=== PATIENT | male | born 1950 | race Caucasian/White ===

== ENCOUNTER → 2016-11-26 | Outpatient (CLI) | payer BC, MEDICARE ==
[~2016-11-26] MED LIST: Bupivacaine 0.25% 10 ML SDV INJECT STA; Iopamidol 612 MG/ML 50 ML SDV IARTIC STA; Triamcinolone Acetonide 40 MG/ML 1 ML MDV INJECT STA
--- NOTE | 2016-11-26 10:58 | CR ---
EXAMINATION: Fluoro guided right hip injection. HISTORY: Osteoarthritis FINDINGS: The procedure, risks, and benefits were discussed with the patient. Risks included pain, bleeding, a nd infection. Written informed consent was obtained. The overlying soft tissues were sterilely prepp ed. 1% lidocaine was administered for local anesthesia. Using fluoroscopic guidance a 22-gauge spina l needle was advanced to the right hip joint. Intra-articular location was confirmed with a small am ount of Isovue-300. A total of 80 mg of Kenalog and 3 mL of Marcaine were injected. The patient tole rated the procedure well. There are no immediate complications. IMPRESSION: Successful Fluoro guided right hip joint steroid injection.
== END | disposition home or self-care (01) ==
LOC: MW.DI 09:19
PROVIDERS: ATTEND Orthopaedic Surgery
DX: M16.11 Unilateral primary osteoarthritis, right hip (principal)
CPT/HCPCS: 20610; 77002; J3301

== ENCOUNTER 2021-05-20 10:24 | Observation (INO) | payer MEDICARE, OTHER ==
[2021-05-20] MEDS ORDERED: Sodium Chloride 0.9% 1,000 ML IV ONE (10:32)
--- NOTE | 2021-05-20 10:32 | EDM.PDOC ---
ED HPI GENERAL MEDICAL PROBLEM - General Chief Complaint: Abdominal Pain Stated Complaint: LOWER RIGHT QUADRANT HURTS 2X DAYS Time Seen by Provider: 05/20/21 10:25 Source of Information: Reports: Patient History Limitations: Reports: No Limitations - History of Present Illness INITIAL COMMENTS - FREE TEXT/NARRATIVE: HISTORY AND PHYSICAL: History of present illness: Patient is a 71-year-old male who presents to the emergency room with complaints of right upper quadrant pain and epigastric pain for the past 2 days. Patient states he had his gallbladder removed 50+ years ago but the "pain feels similar". Describes the pain as sharp and nonradiating. Pain is exacerbated upon standing when he gets up from his recliner as well as with any twisting movements. Pain is not associated with food. Patient denies any fever, chills, headache, change in vision, syncope or near syncope. Denies any chest pain, back pain, shortness of breath or cough. Denies any nausea, vomiting, diarrhea, constipation or dysuria. Has not noted any blood in urine or stool. Last BM was yesterday, describes as normal. Denies any testicular pain, redness, swelling or difficulty initiating voiding. Patient has been eating and drinking appropriately. Patient denies any injury or trauma. He is on Eliquis daily for A.Fib. No concern for COVID - 19, has had the [email or web address] vaccination. Review of systems: As per history of present illness and below otherwise all systems reviewed and negative. Past medical history: As per history of present illness and as reviewed below otherwise noncontribut ory. Surgical history: As per history of present illness and as reviewed below otherwise noncontributory. Social history: See social history for further information Family history: As per history of present illness and as reviewed below otherwise noncontributory. Physical exam: General: Well developed and well nourished 71 year old male. Alert and orientated x 3. Nontoxic in appearance and in no acute distress. Vital signs are stable and have been reviewed by me. Nursing notes were reviewed. HEENT: Atraumatic, normocephalic, pupils equal and reactive bilaterally, negative for conjunctival pallor or scleral icterus, mucous membranes moist, TMs normal bilaterally, throat clear, neck supple, nontender, trachea midline. No drooling or trismus noted. No meningeal signs. No hot potato voice noted. Lungs: Clear to auscultation bilaterally. No wheezes, rales, or rhonchi. Chest nontender. Normal work of breathing, no accessory muscles used. Heart: S1S2, regular rate and rhythm without overt murmur, gallops, or rubs. No JVD. No peripheral edema Abdomen: The right midabdomen feels firm to touch. He is obese. He has tenderness elicited upon palpation in the right upper quadrant as well as the epigastric area. Normoactive bowel sounds. Negative for masses or costovertebral tenderness. Pelvis: Stable nontender. Genitourinary/Rectal: This was done with consent and foam rubber mixer at bedside. No testicular pain with palpation. No redness or swelling. Skin: Intact, warm, dry. No lesions or rashes noted. Hematologic: No petechiae or purpra. Mucosa appropriate color and normal nail bed color and refill. Extremities: Atraumatic, moves all extremities per self without difficulty or deficits, negative for cords or calf pain. Neurovascular unremarkable. Neuro: Awake, alert, oriented. Cranial nerves II through XII unremarkable. Cerebellum unremarkable. Motor and sensory unremarkable throughout. Exam nonfocal. Psychiatric: Mood and affect are appropriate. Normal thought process. Answering questions appropriately. Notes: *This patient was seen and evaluated during the 2019 SARS-CoV-2 novel coronavirus pandemic period. Community viral transmission is ongoing at time of this encounter and the emergency department is operating under pandemic response procedures. Patient is a 71 year old male who has right upper quadrant pain as well as epigastric pain. He denies any n/v/d associated with this. No changes in urine or bowel habits. No recent injury, trauma or falls. Skin is free of rash/lesions. He is obese with palpable firmness to RUQ associated with tenderness to palpation. Denies any history of hernia etc.. I will assess patient with some imaging more specifically CT of the abdomen, IV access has been established, patient will receive intravenous fluids for hydration, as well as analgesic medication for pain (which he declines at this time). Ultra sound shows a large hypoechoic avascular collection in the right lower quadrant likely corresponds with the rectus sheath hematoma seen on same day CT. 4.9 cm simple cyst in the lower pole of right kidney. Exam otherwise unremarkable. There is a large hyperdense right lower rectus sheath hematoma measuring approxi mately 11 x 15 x 10 cm in size. There appears to be active extravasation from the inferior epigastric vessels within the hematoma. Small amount of strandy density in the pelvis subjacent to the hematoma. Few small noncalcified pulmonary nodules in the lung bases measuring up to 5 mm. 1315: Dr. Wick, general surgeon on-call, was consulted on this case. He would prefer this patient to be transferred to a facility with interventional radiology. 1325: Dr Varela, IR at [facility] in [place], was consulted on this patient. He was able to review the CT images that were pushed. We reviewed the patient's case. He would like the patient to have a CT angiogram of the abdomen and pelvis to assess for venous versus arterial bleeding. This would facilitate if the patient needs transfer versus admission for monitoring. Patient was made aware of this and he is agreeable. 1400: Dr Wick, general surgeon, was here seeing another patient and looked at patient's CT images. He is agreeable that this patient likely does not have active bleeding, especially since the injury possibly occurred 3 days ago. I did tell him the conversation I had with the interventional radiologist and he is agreeable. He states if there is no active bleeding that we could likely keep him here and have surgery consulted if needed. Otherwise he would be managed by medicine to make sure he is stable to be home and discuss the Eliquis. We have had problems getting a large bore IV for the an CT angio of abd/pelvis. Anesthesia, nursing supervisory historian nurses have attempted to establish an IV. Dr. Tellez did do an ultrasound-guided IV. Once CT brings the patient down the IVs below. Patient continues to be stable. Vital signs are stable. States his pain is dull and declines wanting anything for pain at this time. 1800: CT angiogram of the abdomen and pelvis shows suboptimal opacification of the arteries due to limited IV access. Within this limitation, no evidence for active bleeding. The size of the right inferior rectus muscle hematoma is stable. Pulmonary nodules in the right lung. Recommend follow-up per Fleischner society guidelines, as listed below. Left adrenal gland nodule. Status post bilateral hip arthroplasty. Small fat containing umbilical hernia. I did talk with Dr. Wick, hospitalist on-call about this patient. I informed him of the discussions I've had with the interventional radiologist at [facility] and our general surgeon. He is agreeable to keeping this patient for further care and management. I have talked with the patient about today's findings, in addition to providing specific details for plan of care. Reassessment at the time of disposition demonstrates that the patient is in no acute distress. Patient continues to be in mild pain but stating he does not need anything for discomfort at this time. He is vitally stable. is at bedside. Diagnostics: CBC, CMP, Lipase, UA, CT abdomen Therapeutics: NS @ 125mls/hr Impression: Rectus muscle hematoma Definitive disposition and diagnosis as appropriate pending reevaluation and review of above. Right Abdomen Pain Score (Numeric/FACES): 4 - Related Data Allergies Allergy/AdvReac Type Severity Reaction Status Date / Time Sulfa (Sulfonamide Allergy Cannot Verified 05/20/21 10:57 Antibiotics) Remember Home Meds: Home Meds Apixaban [Eliquis] 5 mg PO DAILY 05/20/21 [History] Propranolol [Inderal LA] 120 mg PO DAILY 05/20/21 [History] amLODIPine [Norvasc] 5 mg PO DAILY 05/20/21 [History] Past Medical History Cardiovascular History: Reports: Hypertension Respiratory History: Reports: None Gastrointestinal History: Reports: None Genitourinary History: Reports: None Musculoskeletal History: Reports: Gout, None Neurological History: Reports: None Psychiatric History: Reports: None Endocrine/Metabolic History: Reports: None Hematologic History: Reports: None Immunologic History: Reports: None Oncologic (Cancer) History: Reports: None Dermatologic History: Reports: None - Past Surgical History Musculoskeletal Surgical History: Reports: Other (See Below) ED ROS GENERAL - Review of Systems Review Of Systems: Comprehensive ROS is negative, except as noted in HPI. ED EXAM, GI/ABD - Physical Exam Exam: See Below (See dictation) Course - Vital Signs Last Recorded V/S: Last Vital Signs Temp 97.3 F 05/20/21 10:25 Pulse 83 05/20/21 18:12 Resp 16 05/20/21 18:12 BP 147/93 H 05/20/21 18:12 Pulse Ox 97 05/20/21 18:12 - Orders/Labs/Meds Orders: Active Orders 24 hr Category Date Time Status Ang Abdomen [CT] Stat Exams 05/20/21 13:46 Ordered Labs: Laboratory Tests 05/20/21 05/20/21 05/20/21 Range/Units 10:50 10:50 10:50 WBC 11.14 H (4.0-11.0) K/uL RBC 4.88 (4.50-5.90) M/uL Hgb 14.6 (13.0-17.0) g/dL Hct 43.4 (38.0-50.0) % MCV 88.9 (80.0-98.0) fL MCH 29.9 (27.0-32.0) pg MCHC 33.6 (31.0-37.0) g/dL RDW Std Deviation 47.2 (28.0-62.0) fl RDW Coeff of Waqar 15 (11.0-15.0) % Plt Count 245 (150-400) K/uL MPV 10.00 (7.40-12.00) fL Neut % (Auto) 80.0 (48.0-80.0) % Lymph % (Auto) 10.6 L (16.0-40.0) % Dawson % (Auto) 8.4 (0.0-15.0) % Eos % (Auto) 0.8 (0.0-7.0) % Baso % (Auto) 0.2 (0.0-1.5) % Neut # (Auto) 8.9 H (1.4-5.7) K/uL Lymph # (Auto) 1.2 (0.6-2.4) K/uL Dawson # (Auto) 0.9 H (0.0-0.8) K/uL Eos # (Auto) 0.1 (0.0-0.7) K/uL Baso # (Auto) 0.0 (0.0-0.1) K/uL Nucleated RBC % 0.0 /100WBC Nucleated RBCs # 0 K/uL INR Sodium 136 (136-148) mmol/L Potassium 4.6 (3.5-5.1) mmol/L Chloride 99 (98-107) mmol/L Carbon Dioxide 29.5 (21.0-32.0) mmol/L BUN 18 (7.0-18.0) mg/dL Creatinine 0.9 (0.8-1.3) mg/dL Est Cr Clr Drug Dosing 76.60 mL/min Estimated GFR (MDRD) > 60.0 ml/min Glucose 123 H (74-106) mg/dL Calcium 9.4 (8.5-10.1) mg/dL Total Bilirubin 0.8 (0.2-1.0) mg/dL AST 21 (15-37) IU/L ALT 31 (14-63) IU/L Alkaline Phosphatase 90 (46-116) U/L Total Protein 8.4 H (6.4-8.2) g/dL Albumin 3.9 (3.4-5.0) g/dL Globulin 4.5 H (2.6-4.0) g/dL Albumin/Globulin Ratio 0.9 (0.9-1.6) Lipase 45 L (73-393) U/L Urine Color DARK YELLOW Urine Appearance CLEAR Urine pH 6.0 (5.0-8.0) Ur Specific [place] 1.025 (1.001-1.035) Urine Protein 30 H (NEGATIVE) mg/dL Urine Glucose (UA) NEGATIVE (NEGATIVE) mg/dL Urine Ketones NEGATIVE (NEGATIVE) mg/dL Urine Occult Blood NEGATIVE (NEGATIVE) Urine Nitrite NEGATIVE (NEGATIVE) Urine Bilirubin SMALL H (NEGATIVE) Urine Ictotest NEGATIVE Urine Urobilinogen 0.2 (<2.0) EU/dL Ur Leukocyte Esterase NEGATIVE (NEGATIVE) Urine RBC 0-2 (0-2/HPF) Urine WBC 1-2 (0-5/HPF) Ur Epithelial Cells FEW (NONE-FEW) Urine Bacteria FEW (NEGATIVE) Urinalysis Comment SARS-CoV-2 RNA (STEPHEN) (NEGATIVE) 05/20/21 05/20/21 Range/Units 10:50 14:14 WBC (4.0-11.0) K/uL RBC (4.50-5.90) M/uL Hgb (13.0-17.0) g/dL Hct (38.0-50.0) % MCV (80.0-98.0) fL MCH (27.0-32.0) pg MCHC (31.0-37.0) g/dL RDW Std Deviation (28.0-62.0) fl RDW Coeff of Waqar (11.0-15.0) % Plt Count (150-400) K/uL MPV (7.40-12.00) fL Neut % (Auto) (48.0-80.0) % Lymph % (Auto) (16.0-40.0) % Dawson % (Auto) (0.0-15.0) % Eos % (Auto) (0.0-7.0) % Baso % (Auto) (0.0-1.5) % Neut # (Auto) (1.4-5.7) K/uL Lymph # (Auto) (0.6-2.4) K/uL Dawson # (Auto) (0.0-0.8) K/uL Eos # (Auto) (0.0-0.7) K/uL Baso # (Auto) (0.0-0.1) K/uL Nucleated RBC % /100WBC Nucleated RBCs # K/uL INR 1.05 Sodium (136-148) mmol/L Potassium (3.5-5.1) mmol/L Chloride (98-107) mmol/L Carbon Dioxide (21.0-32.0) mmol/L BUN (7.0-18.0) mg/dL Creatinine (0.8-1.3) mg/dL Est Cr Clr Drug Dosing mL/min Estimated GFR (MDRD) ml/min Glucose (74-106) mg/dL Calcium (8.5-10.1) mg/dL Total Bilirubin (0.2-1.0) mg/dL AST (15-37) IU/L ALT (14-63) IU/L Alkaline Phosphatase (46-116) U/L Total Protein (6.4-8.2) g/dL Albumin (3.4-5.0) g/dL Globulin (2.6-4.0) g/dL Albumin/Globulin Ratio (0.9-1.6) Lipase (73-393) U/L Urine Color Urine Appearance Urine pH (5.0-8.0) Ur Specific [place] (1.001-1.035) Urine Protein (NEGATIVE) mg/dL Urine Glucose (UA) (NEGATIVE) mg/dL Urine Ketones (NEGATIVE) mg/dL Urine Occult Blood (NEGATIVE) Urine Nitrite (NEGATIVE) Urine Bilirubin (NEGATIVE) Urine Ictotest Urine Urobilinogen (<2.0) EU/dL Ur Leukocyte Esterase (NEGATIVE) Urine RBC (0-2/HPF) Urine WBC (0-5/HPF) Ur Epithelial Cells (NONE-FEW) Urine Bacteria (NEGATIVE) Urinalysis Comment SARS-CoV-2 RNA (STEPHEN) NEGATIVE (NEGATIVE) Meds: Medications Discontinued Medications Generic Name Dose Route Start Last Admin Trade Name Hector PRN Reason Stop Dose Admin Sodium Chloride 1,000 mls @ 125 mls/hr 05/20/21 10:32 05/20/21 10:53 Normal Saline IV 05/20/21 18:31 125 mls/hr STAT ONE Administration Iopamidol 200 ml 05/20/21 16:54 05/20/21 16:55 Iopamidol 755 Mg/Ml 500 Ml Multipack Bottle IVPUSH 05/20/21 16:55 200 ml ONETIME STA Administration Departure - Departure Time of Disposition: 19:29 Disposition: Refer to Observation Clinical Impression: Hematoma - Discharge Information Sepsis Event Note (ED) - Focused Exam Vital Signs: Vital Signs Temp Pulse Resp BP Pulse Ox 05/20/21 18:12 83 16 147/93 H 97 05/20/21 17:18 91 16 142/72 H 96 05/20/21 15:00 84 16 133/85 96 05/20/21 14:00 80 16 128/80 95 05/20/21 13:15 78 16 114/70 98 05/20/21 11:34 81 16 126/72 98 05/20/21 10:25 97.3 F 84 18 129/64 98 - My Orders Last 24 Hours: My Active Orders 05/20/21 13:46 Ang Abdomen [CT] Stat - Assessment/Plan Last 24 Hours: My Active Orders 05/20/21 13:46 Ang Abdomen [CT] Stat
[2021-05-20 11:36] LABS: BLOOD UREA NITROGEN,BUN 18 mg/dL (7.0-18.0); CARBON DIOXIDE,CO2 29.5 mmol/L (21.0-32.0); CHLORIDE,CL 99 mmol/L (98-107); GLUCOSE RANDOM 123 mg/dL (74-106); LIPASE 45 U/L (73-393); POTASSIUM,K 4.6 mmol/L (3.5-5.1); SODIUM,NA 136 mmol/L (136-148)
--- NOTE | 2021-05-20 12:43 | US ---
INDICATION: Right-sided abdominal pain, firm to touch. COMPARISON: Same day CT of the abdomen and pelvis 05/20/2021. TECHNIQUE: Real time win scale imaging and color Doppler analysis was performed of the right upper quadrant. FINDINGS: Liver: The liver is normal in size measuring 15.3 cm in length. Normal echogenicity. No focal liver lesions. Gallbladder: No stones or sludge. No wall thickening or pericholecystic fluid. Negative sonographic Merchant sign. Bile ducts: No biliary dilation. The common bile duct measures 2 mm in diameter. Pancreas: Normal where seen. Right kidney: The right kidney measures 10.4 cm in length. No hydronephrosis, calculus, or mass. There is a 4.9 cm anechoic cyst in the lower pole of the right kidney. Other: There is an irregular hypoechoic collection in the right lower quadrant measuring 9.1 x 7.6 cm. No internal vascularity. This likely corresponds with the rectus sheath hematoma seen on CT. IMPRESSION: 1. Large hypoechoic avascular collection in the right lower quadrant likely corresponds with the rectus sheath hematoma seen on same day CT. 2. 4.9 cm simple cyst in the lower pole of right kidney. 3. Exam otherwise unremarkable. Dictated by Naina Vega MD @ 05/20/2021 12:41:[address] Naina Vega @ May 20 2021 12:41PM
--- NOTE | 2021-05-20 13:10 | CT ---
INDICATION: Right-sided abdominal pain. TECHNIQUE: CT of the abdomen and pelvis with 100 cc Isovue 370 IV contrast. Coronal and sagittal reconstructions. COMPARISON: Same day abdominal ultrasound 05/20/2021. FINDINGS: Tiny low-attenuation lesion in the anterior liver is too small to characterize (series 201, image 36). The gallbladder, spleen, pancreas, and right adrenal gland are negative. Small nodule in the base of the left adrenal gland. No biliary dilation. Hepatic and portal veins are patent. Symmetric enhancement of the kidneys. 4.9 cm cyst arising from the lower pole of the right kidney. Tiny low-attenuation lesion in the midportion of the right kidney most likely represents a cyst. Early excretion of contrast in the caliceal tips bilaterally. No hydronephrosis or ureteral dilation. No obstructing urinary calculi identified, however the distal ureters are obscured by streak artifact from bilateral hip arthroplasties. Partially visualized bladder is under distended and thick walled. The prostate gland is not well seen. No bowel dilation. Colonic diverticulosis without evidence of diverticulitis. Appendectomy. Mild amount of strandy density in the pelvis subjacent to the rectus sheath hematoma. No intraperitoneal free air. Small to moderate sized fat containing umbilical hernia. Aortoiliac vascular calcifications. Nonspecific haziness of the left abdominal mesentery with mildly prominent mesenteric lymph nodes. Multiple prominent external iliac chain and inguinal lymph nodes may be reactive. No lymphadenopathy by size criteria. There is a large hyperdense right lower rectus sheath hematoma measuring approximately 11 x 15 x 10 cm in size (series 201, image 140 and series 204, image 85). There appears to be active extravasation from the inferior epigastric vessels within the hematoma (series 201, image 126). Degenerative changes of the spine. 4 mm noncalcified pulmonary nodule in the right middle lobe (series 202, image 13). 5 mm noncalcified pulmonary nodule in the central right lower lobe (image 26). 3 mm noncalcified pulmonary nodule in the posterior right lower lobe (image 33). The lung bases are otherwise clear. Coronary artery and mitral annulus calcifications. IMPRESSION: 1. Large hyperdense right lower rectus sheath hematoma with active extravasation from the inferior epigastric vessels measuring approximately 11 x 15 x 10 cm in size. Recommend IR/vascular consult. 2. Small amount of strandy density in the pelvis subjacent to the hematoma. 3. Few small noncalcified pulmonary nodules in the lung bases measuring up to 5 mm. Follow-up per Fleischner society guidelines. 4. Findings discussed with the Erlinda Brennan at 1:05 p.m. on 05/20/2021. Please note that all CT scans at this facility use dose modulation, iterative reconstruction, and/or weight-based dosing when appropriate to reduce radiation dose to as low as reasonably achievable. Dictated by Naina Vega MD @ 05/20/2021 1:08:[address] Naina Vega @ May 20 2021 1:08PM
--- NOTE | 2021-05-20 14:19 | PCM.SN.2 ---
- Free Text/Narrative Note: Anesthesia Start: 1350 Anesthesia Stop: [address] PIV (18g) in patient requiring CT angiogram. Using US Guidance a left arm 18g angiocath was placed. No apparent complications. Catheter secured with tegaderm and tape. Rodriguez Mcgraw MD
[2021-05-20] MEDS ORDERED: Iopamidol 755 MG/ML 500 ML Multipack Bottle IVPUSH STA (16:54)
--- NOTE | 2021-05-20 18:02 | CT ---
INDICATION: Rectus sheath hematoma TECHNIQUE: CT abdomen and pelvis acquired with 100 cc Isovue 370 IV contrast. COMPARISON: CT abdomen pelvis from earlier today FINDINGS: Lower chest: Two pulmonary nodules in the right middle and right lower lobe measuring less than 5 mm in diameter. Liver: Unremarkable. Spleen: Unremarkable. Pancreas: Fatty infiltration of the pancreas. Gallbladder and bile ducts: Unremarkable. Adrenal glands: 8 mm left adrenal gland nodule measuring 16 Hounsfield units in density, likely an adenoma. Kidneys: Cyst on the lower pole of the right kidney. GI tract: Colonic diverticulosis. Status post appendectomy. Vascular structures: Mild aortoiliac calcifications. Lymph nodes: Unremarkable. Miscellaneous: Right inferior rectus muscle hematoma measuring 13.5 x 10.4 x 6.6 cm, unchanged in size compared to the prior study. No active bleeding is identified although note that the arterial IV contrast bolus was limited as only a small gauge hand IV was available. There is small amount of fat stranding within the pelvis adjacent to the inferior aspect of the rectus sheath hematoma. Small fat containing umbilical hernia. Pelvic Organs: Unremarkable. Bones: Status post bilateral hip arthroplasty. IMPRESSION: IMPRESSION:Suboptimal opacification of the arteries due to limited IV access. Within this limitation, no evidence for active bleeding. The size of the right inferior rectus muscle hematoma is stable. Pulmonary nodules in the right lung. Recommend follow-up per Fleischner society guidelines, as listed below. Left adrenal gland nodule. Status post bilateral hip arthroplasty. Small fat containing umbilical hernia. Please note that all CT scans at this facility use dose modulation, iterative reconstruction, and/or weight-based dosing when appropriate to reduce radiation dose to as low as reasonably achievable. Dictated by Liss Almanzar MD @ 05/20/2021 6:01:[address] Liss Almanzar @ May 20 2021 6:01PM
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
[2021-05-21 06:57] LABS: BLOOD UREA NITROGEN,BUN 22 mg/dL (7.0-18.0); CARBON DIOXIDE,CO2 27.8 mmol/L (21.0-32.0); CHLORIDE,CL 100 mmol/L (98-107); GLUCOSE RANDOM 105 mg/dL (74-106); POTASSIUM,K 4.2 mmol/L (3.5-5.1); SODIUM,NA 137 mmol/L (136-148)
--- NOTE | 2021-05-21 08:10 | PCM.PN ---
- General Info Date of Service: 05/21/21 - Review of Systems Systems Review Comment:: abdominal pain improved - Patient Data Vitals - Most Recent: Last Vital Signs Temp 36.4 C 05/21/21 07:25 Pulse 86 05/21/21 07:25 Resp 20 05/21/21 07:25 BP 115/61 05/21/21 07:25 Pulse Ox 94 L 05/21/21 07:25 Weight - Most Recent: 142.791 kg I&O - Last 24 Hours: Intake & Output 05/20/21 05/21/21 05/21/21 22:59 06:59 14:59 Intake Total 650 Output Total 600 Balance 50 Lab Results Last 24 Hours: Laboratory Results - last 24 hr 05/20/21 05/20/21 05/20/21 Range/Units 10:50 10:50 10:50 WBC 11.14 H (4.0-11.0) K/uL RBC 4.88 (4.50-5.90) M/uL Hgb 14.6 (13.0-17.0) g/dL Hct 43.4 (38.0-50.0) % MCV 88.9 (80.0-98.0) fL MCH 29.9 (27.0-32.0) pg MCHC 33.6 (31.0-37.0) g/dL RDW Std Deviation 47.2 (28.0-62.0) fl RDW Coeff of Waqar 15 (11.0-15.0) % Plt Count 245 (150-400) K/uL MPV 10.00 (7.40-12.00) fL Neut % (Auto) 80.0 (48.0-80.0) % Lymph % (Auto) 10.6 L (16.0-40.0) % [place] % (Auto) 8.4 (0.0-15.0) % Eos % (Auto) 0.8 (0.0-7.0) % Baso % (Auto) 0.2 (0.0-1.5) % Neut # (Auto) 8.9 H (1.4-5.7) K/uL Lymph # (Auto) 1.2 (0.6-2.4) K/uL [place] # (Auto) 0.9 H (0.0-0.8) K/uL Eos # (Auto) 0.1 (0.0-0.7) K/uL Baso # (Auto) 0.0 (0.0-0.1) K/uL Nucleated RBC % 0.0 /100WBC Nucleated RBCs # 0 K/uL INR Sodium 136 (136-148) mmol/L Potassium 4.6 (3.5-5.1) mmol/L Chloride 99 (98-107) mmol/L Carbon Dioxide 29.5 (21.0-32.0) mmol/L BUN 18 (7.0-18.0) mg/dL Creatinine 0.9 (0.8-1.3) mg/dL Est Cr Clr Drug Dosing 76.60 mL/min Estimated GFR (MDRD) > 60.0 ml/min Glucose 123 H (74-106) mg/dL Calcium 9.4 (8.5-10.1) mg/dL Total Bilirubin 0.8 (0.2-1.0) mg/dL AST 21 (15-37) IU/L ALT 31 (14-63) IU/L Alkaline Phosphatase 90 (46-116) U/L Total Protein 8.4 H (6.4-8.2) g/dL Albumin 3.9 (3.4-5.0) g/dL Globulin 4.5 H (2.6-4.0) g/dL Albumin/Globulin Ratio 0.9 (0.9-1.6) Lipase 45 L (73-393) U/L Urine Color DARK YELLOW Urine Appearance CLEAR Urine pH 6.0 (5.0-8.0) Ur Specific [place] 1.025 (1.001-1.035) Urine Protein 30 H (NEGATIVE) mg/dL Urine Glucose (UA) NEGATIVE (NEGATIVE) mg/dL Urine Ketones NEGATIVE (NEGATIVE) mg/dL Urine Occult Blood NEGATIVE (NEGATIVE) Urine Nitrite NEGATIVE (NEGATIVE) Urine Bilirubin SMALL H (NEGATIVE) Urine Ictotest NEGATIVE Urine Urobilinogen 0.2 (<2.0) EU/dL Ur Leukocyte Esterase NEGATIVE (NEGATIVE) Urine RBC 0-2 (0-2/HPF) Urine WBC 1-2 (0-5/HPF) Ur Epithelial Cells FEW (NONE-FEW) Urine Bacteria FEW (NEGATIVE) Urinalysis Comment SARS-CoV-2 RNA (STEPHEN) (NEGATIVE) Blood Type Antibody Screen 05/20/21 05/20/21 05/20/21 Range/Units 10:50 14:14 23:40 WBC (4.0-11.0) K/uL RBC (4.50-5.90) M/uL Hgb (13.0-17.0) g/dL Hct (38.0-50.0) % MCV (80.0-98.0) fL MCH (27.0-32.0) pg MCHC (31.0-37.0) g/dL RDW Std Deviation (28.0-62.0) fl RDW Coeff of Waqar (11.0-15.0) % Plt Count (150-400) K/uL MPV (7.40-12.00) fL Neut % (Auto) (48.0-80.0) % Lymph % (Auto) (16.0-40.0) % [place] % (Auto) (0.0-15.0) % Eos % (Auto) (0.0-7.0) % Baso % (Auto) (0.0-1.5) % Neut # (Auto) (1.4-5.7) K/uL Lymph # (Auto) (0.6-2.4) K/uL [place] # (Auto) (0.0-0.8) K/uL Eos # (Auto) (0.0-0.7) K/uL Baso # (Auto) (0.0-0.1) K/uL Nucleated RBC % /100WBC Nucleated RBCs # K/uL INR 1.05 Sodium (136-148) mmol/L Potassium (3.5-5.1) mmol/L Chloride (98-107) mmol/L Carbon Dioxide (21.0-32.0) mmol/L BUN (7.0-18.0) mg/dL Creatinine (0.8-1.3) mg/dL Est Cr Clr Drug Dosing mL/min Estimated GFR (MDRD) ml/min Glucose (74-106) mg/dL Calcium (8.5-10.1) mg/dL Total Bilirubin (0.2-1.0) mg/dL AST (15-37) IU/L ALT (14-63) IU/L Alkaline Phosphatase (46-116) U/L Total Protein (6.4-8.2) g/dL Albumin (3.4-5.0) g/dL Globulin (2.6-4.0) g/dL Albumin/Globulin Ratio (0.9-1.6) Lipase (73-393) U/L Urine Color Urine Appearance Urine pH (5.0-8.0) Ur Specific [place] (1.001-1.035) Urine Protein (NEGATIVE) mg/dL Urine Glucose (UA) (NEGATIVE) mg/dL Urine Ketones (NEGATIVE) mg/dL Urine Occult Blood (NEGATIVE) Urine Nitrite (NEGATIVE) Urine Bilirubin (NEGATIVE) Urine Ictotest Urine Urobilinogen (<2.0) EU/dL Ur Leukocyte Esterase (NEGATIVE) Urine RBC (0-2/HPF) Urine WBC (0-5/HPF) Ur Epithelial Cells (NONE-FEW) Urine Bacteria (NEGATIVE) Urinalysis Comment SARS-CoV-2 RNA (STEPHEN) NEGATIVE (NEGATIVE) Blood Type A NEGATIVE Antibody Screen NEGATIVE 05/20/21 05/21/21 05/21/21 Range/Units 23:40 05:30 05:30 WBC 9.27 8.59 (4.0-11.0) K/uL RBC 4.28 L 4.30 L (4.50-5.90) M/uL Hgb 12.9 L 12.5 L (13.0-17.0) g/dL Hct 38.1 38.3 (38.0-50.0) % MCV 89.0 89.1 (80.0-98.0) fL MCH 30.1 29.1 (27.0-32.0) pg MCHC 33.9 32.6 (31.0-37.0) g/dL RDW Std Deviation 47.7 48.2 (28.0-62.0) fl RDW Coeff of Waqar 15 15 (11.0-15.0) % Plt Count 218 222 (150-400) K/uL MPV 9.90 10.70 (7.40-12.00) fL Neut % (Auto) 75.5 74.3 (48.0-80.0) % Lymph % (Auto) 14.2 L 13.4 L (16.0-40.0) % [place] % (Auto) 9.2 11.1 (0.0-15.0) % Eos % (Auto) 0.8 0.9 (0.0-7.0) % Baso % (Auto) 0.3 0.3 (0.0-1.5) % Neut # (Auto) 7.0 H 6.4 H (1.4-5.7) K/uL Lymph # (Auto) 1.3 1.2 (0.6-2.4) K/uL [place] # (Auto) 0.9 H 1.0 H (0.0-0.8) K/uL Eos # (Auto) 0.1 0.1 (0.0-0.7) K/uL Baso # (Auto) 0.0 0.0 (0.0-0.1) K/uL Nucleated RBC % 0.0 0.0 /100WBC Nucleated RBCs # 0 0 K/uL INR Sodium 137 (136-148) mmol/L Potassium 4.2 (3.5-5.1) mmol/L Chloride 100 (98-107) mmol/L Carbon Dioxide 27.8 (21.0-32.0) mmol/L BUN 22 H (7.0-18.0) mg/dL Creatinine 1.0 (0.8-1.3) mg/dL Est Cr Clr Drug Dosing 69.11 mL/min Estimated GFR (MDRD) > 60.0 ml/min Glucose 105 (74-106) mg/dL Calcium 8.4 L (8.5-10.1) mg/dL Total Bilirubin (0.2-1.0) mg/dL AST (15-37) IU/L ALT (14-63) IU/L Alkaline Phosphatase (46-116) U/L Total Protein (6.4-8.2) g/dL Albumin (3.4-5.0) g/dL Globulin (2.6-4.0) g/dL Albumin/Globulin Ratio (0.9-1.6) Lipase (73-393) U/L Urine Color Urine Appearance Urine pH (5.0-8.0) Ur Specific [place] (1.001-1.035) Urine Protein (NEGATIVE) mg/dL Urine Glucose (UA) (NEGATIVE) mg/dL Urine Ketones (NEGATIVE) mg/dL Urine Occult Blood (NEGATIVE) Urine Nitrite (NEGATIVE) Urine Bilirubin (NEGATIVE) Urine Ictotest Urine Urobilinogen (<2.0) EU/dL Ur Leukocyte Esterase (NEGATIVE) Urine RBC (0-2/HPF) Urine WBC (0-5/HPF) Ur Epithelial Cells (NONE-FEW) Urine Bacteria (NEGATIVE) Urinalysis Comment SARS-CoV-2 RNA (STEPHEN) (NEGATIVE) Blood Type Antibody Screen Med Orders - Current: Current Medications Acetaminophen (Acetaminophen 325 Mg Tab) 650 mg PO Q4H PRN PRN Reason: Pain (Mild 1-3)/fever Amlodipine Besylate (Amlodipine 5 Mg Tab) 5 mg PO DAILY GLENYS Propranolol HCl (Propranolol 60 Mg Cap.Er) 120 mg PO DAILY GLENYS Discontinued Medications Sodium Chloride (Normal Saline) 1,000 mls @ 125 mls/hr IV STAT ONE Stop: 05/20/21 18:31 Last Admin: 05/20/21 10:53 Dose: 125 mls/hr Documented by: Iopamidol (Iopamidol 755 Mg/Ml 500 Ml Multipack Bottle) 200 ml IVPUSH ONETIME STA Stop: 05/20/21 16:55 Last Admin: 05/20/21 16:55 Dose: 200 ml Documented by: - Exam General: Alert, Oriented Lungs: Clear to Auscultation, Normal Respiratory Effort Cardiovascular: Regular Rate, Regular Rhythm GI/Abdominal Exam: Normal Bowel Sounds, Soft, Non-Tender Extremities: Non-Tender, No Pedal Edema Skin: Warm, Dry, Intact Neurological: No New Focal Deficit - Patient Data Lab Results Last 24 hrs: Laboratory Results - last 24 hr 05/20/21 05/20/21 05/20/21 Range/Units 10:50 10:50 10:50 WBC 11.14 H (4.0-11.0) K/uL RBC 4.88 (4.50-5.90) M/uL Hgb 14.6 (13.0-17.0) g/dL Hct 43.4 (38.0-50.0) % MCV 88.9 (80.0-98.0) fL MCH 29.9 (27.0-32.0) pg MCHC 33.6 (31.0-37.0) g/dL RDW Std Deviation 47.2 (28.0-62.0) fl RDW Coeff of Waqar 15 (11.0-15.0) % Plt Count 245 (150-400) K/uL MPV 10.00 (7.40-12.00) fL Neut % (Auto) 80.0 (48.0-80.0) % Lymph % (Auto) 10.6 L (16.0-40.0) % [place] % (Auto) 8.4 (0.0-15.0) % Eos % (Auto) 0.8 (0.0-7.0) % Baso % (Auto) 0.2 (0.0-1.5) % Neut # (Auto) 8.9 H (1.4-5.7) K/uL Lymph # (Auto) 1.2 (0.6-2.4) K/uL [place] # (Auto) 0.9 H (0.0-0.8) K/uL Eos # (Auto) 0.1 (0.0-0.7) K/uL Baso # (Auto) 0.0 (0.0-0.1) K/uL Nucleated RBC % 0.0 /100WBC Nucleated RBCs # 0 K/uL INR Sodium 136 (136-148) mmol/L Potassium 4.6 (3.5-5.1) mmol/L Chloride 99 (98-107) mmol/L Carbon Dioxide 29.5 (21.0-32.0) mmol/L BUN 18 (7.0-18.0) mg/dL Creatinine 0.9 (0.8-1.3) mg/dL Est Cr Clr Drug Dosing 76.60 mL/min Estimated GFR (MDRD) > 60.0 ml/min Glucose 123 H (74-106) mg/dL Calcium 9.4 (8.5-10.1) mg/dL Total Bilirubin 0.8 (0.2-1.0) mg/dL AST 21 (15-37) IU/L ALT 31 (14-63) IU/L Alkaline Phosphatase 90 (46-116) U/L Total Protein 8.4 H (6.4-8.2) g/dL Albumin 3.9 (3.4-5.0) g/dL Globulin 4.5 H (2.6-4.0) g/dL Albumin/Globulin Ratio 0.9 (0.9-1.6) Lipase 45 L (73-393) U/L Urine Color DARK YELLOW Urine Appearance CLEAR Urine pH 6.0 (5.0-8.0) Ur Specific [place] 1.025 (1.001-1.035) Urine Protein 30 H (NEGATIVE) mg/dL Urine Glucose (UA) NEGATIVE (NEGATIVE) mg/dL Urine Ketones NEGATIVE (NEGATIVE) mg/dL Urine Occult Blood NEGATIVE (NEGATIVE) Urine Nitrite NEGATIVE (NEGATIVE) Urine Bilirubin SMALL H (NEGATIVE) Urine Ictotest NEGATIVE Urine Urobilinogen 0.2 (<2.0) EU/dL Ur Leukocyte Esterase NEGATIVE (NEGATIVE) Urine RBC 0-2 (0-2/HPF) Urine WBC 1-2 (0-5/HPF) Ur Epithelial Cells FEW (NONE-FEW) Urine Bacteria FEW (NEGATIVE) Urinalysis Comment SARS-CoV-2 RNA (STEPHEN) (NEGATIVE) Blood Type Antibody Screen 05/20/21 05/20/21 05/20/21 Range/Units 10:50 14:14 23:40 WBC (4.0-11.0) K/uL RBC (4.50-5.90) M/uL Hgb (13.0-17.0) g/dL Hct (38.0-50.0) % MCV (80.0-98.0) fL MCH (27.0-32.0) pg MCHC (31.0-37.0) g/dL RDW Std Deviation (28.0-62.0) fl RDW Coeff of Waqar (11.0-15.0) % Plt Count (150-400) K/uL MPV (7.40-12.00) fL Neut % (Auto) (48.0-80.0) % Lymph % (Auto) (16.0-40.0) % [place] % (Auto) (0.0-15.0) % Eos % (Auto) (0.0-7.0) % Baso % (Auto) (0.0-1.5) % Neut # (Auto) (1.4-5.7) K/uL Lymph # (Auto) (0.6-2.4) K/uL [place] # (Auto) (0.0-0.8) K/uL Eos # (Auto) (0.0-0.7) K/uL Baso # (Auto) (0.0-0.1) K/uL Nucleated RBC % /100WBC Nucleated RBCs # K/uL INR 1.05 Sodium (136-148) mmol/L Potassium (3.5-5.1) mmol/L Chloride (98-107) mmol/L Carbon Dioxide (21.0-32.0) mmol/L BUN (7.0-18.0) mg/dL Creatinine (0.8-1.3) mg/dL Est Cr Clr Drug Dosing mL/min Estimated GFR (MDRD) ml/min Glucose (74-106) mg/dL Calcium (8.5-10.1) mg/dL Total Bilirubin (0.2-1.0) mg/dL AST (15-37) IU/L ALT (14-63) IU/L Alkaline Phosphatase (46-116) U/L Total Protein (6.4-8.2) g/dL Albumin (3.4-5.0) g/dL Globulin (2.6-4.0) g/dL Albumin/Globulin Ratio (0.9-1.6) Lipase (73-393) U/L Urine Color Urine Appearance Urine pH (5.0-8.0) Ur Specific [place] (1.001-1.035) Urine Protein (NEGATIVE) mg/dL Urine Glucose (UA) (NEGATIVE) mg/dL Urine Ketones (NEGATIVE) mg/dL Urine Occult Blood (NEGATIVE) Urine Nitrite (NEGATIVE) Urine Bilirubin (NEGATIVE) Urine Ictotest Urine Urobilinogen (<2.0) EU/dL Ur Leukocyte Esterase (NEGATIVE) Urine RBC (0-2/HPF) Urine WBC (0-5/HPF) Ur Epithelial Cells (NONE-FEW) Urine Bacteria (NEGATIVE) Urinalysis Comment SARS-CoV-2 RNA (STEPHEN) NEGATIVE (NEGATIVE) Blood Type A NEGATIVE Antibody Screen NEGATIVE 05/20/21 05/21/21 05/21/21 Range/Units 23:40 05:30 05:30 WBC 9.27 8.59 (4.0-11.0) K/uL RBC 4.28 L 4.30 L (4.50-5.90) M/uL Hgb 12.9 L 12.5 L (13.0-17.0) g/dL Hct 38.1 38.3 (38.0-50.0) % MCV 89.0 89.1 (80.0-98.0) fL MCH 30.1 29.1 (27.0-32.0) pg MCHC 33.9 32.6 (31.0-37.0) g/dL RDW Std Deviation 47.7 48.2 (28.0-62.0) fl RDW Coeff of Waqar 15 15 (11.0-15.0) % Plt Count 218 222 (150-400) K/uL MPV 9.90 10.70 (7.40-12.00) fL Neut % (Auto) 75.5 74.3 (48.0-80.0) % Lymph % (Auto) 14.2 L 13.4 L (16.0-40.0) % [place] % (Auto) 9.2 11.1 (0.0-15.0) % Eos % (Auto) 0.8 0.9 (0.0-7.0) % Baso % (Auto) 0.3 0.3 (0.0-1.5) % Neut # (Auto) 7.0 H 6.4 H (1.4-5.7) K/uL Lymph # (Auto) 1.3 1.2 (0.6-2.4) K/uL [place] # (Auto) 0.9 H 1.0 H (0.0-0.8) K/uL Eos # (Auto) 0.1 0.1 (0.0-0.7) K/uL Baso # (Auto) 0.0 0.0 (0.0-0.1) K/uL Nucleated RBC % 0.0 0.0 /100WBC Nucleated RBCs # 0 0 K/uL INR Sodium 137 (136-148) mmol/L Potassium 4.2 (3.5-5.1) mmol/L Chloride 100 (98-107) mmol/L Carbon Dioxide 27.8 (21.0-32.0) mmol/L BUN 22 H (7.0-18.0) mg/dL Creatinine 1.0 (0.8-1.3) mg/dL Est Cr Clr Drug Dosing 69.11 mL/min Estimated GFR (MDRD) > 60.0 ml/min Glucose 105 (74-106) mg/dL Calcium 8.4 L (8.5-10.1) mg/dL Total Bilirubin (0.2-1.0) mg/dL AST (15-37) IU/L ALT (14-63) IU/L Alkaline Phosphatase (46-116) U/L Total Protein (6.4-8.2) g/dL Albumin (3.4-5.0) g/dL Globulin (2.6-4.0) g/dL Albumin/Globulin Ratio (0.9-1.6) Lipase (73-393) U/L Urine Color Urine Appearance Urine pH (5.0-8.0) Ur Specific [place] (1.001-1.035) Urine Protein (NEGATIVE) mg/dL Urine Glucose (UA) (NEGATIVE) mg/dL Urine Ketones (NEGATIVE) mg/dL Urine Occult Blood (NEGATIVE) Urine Nitrite (NEGATIVE) Urine Bilirubin (NEGATIVE) Urine Ictotest Urine Urobilinogen (<2.0) EU/dL Ur Leukocyte Esterase (NEGATIVE) Urine RBC (0-2/HPF) Urine WBC (0-5/HPF) Ur Epithelial Cells (NONE-FEW) Urine Bacteria (NEGATIVE) Urinalysis Comment SARS-CoV-2 RNA (STEPHNE) (NEGATIVE) Blood Type Antibody Screen Result Diagrams: 05/21/21 05:30 05/21/21 05:30 Sepsis Event Note - Evaluation Sepsis Screening Result: No Definite Risk - Focused Exam Vital Signs: Vital Signs Temp Temp Pulse Resp BP Pulse Ox 05/21/21 07:25 36.4 C 86 20 115/61 94 L 05/21/21 05:47 37.0 C 72 15 112/69 94 L 05/21/21 00:00 36.3 C 80 16 107/64 94 L 05/20/21 20:14 37.0 C 83 16 142/70 H 95 - Problem List Review Problem List Initiated/Reviewed/Updated: Yes - My Orders Last 24 Hours: My Active Orders 05/20/21 23:20 Oxygen Therapy [RC] PRN Up ad Janell [RC] ASDIRECTED VTE/DVT Education [RC] PER UNIT ROUTINE Vital Signs [RC] Q4H Acetaminophen [TylenoL] 650 mg PO Q4H PRN Sequential Compression Device [OM.PC] Per Unit Routine Resuscitation Status Routine 05/20/21 23:21 Antiembolic Devices [RC] PER UNIT ROUTINE 05/21/21 Breakfast Regular Diet [DIET] 05/21/21 09:00 Propranolol [Inderal LA] 120 mg PO DAILY amLODIPine [Norvasc] 5 mg PO DAILY 05/22/21 05:11 BASIC METABOLIC PANEL,BMP [CHEM] AM CBC WITH AUTO DIFF [HEME] AM - Plan Plan:: 71 yo mald admitted due to large right lower rectus sheath hematoma. We are holding Eliquis. Will continue to monitor.
[2021-05-21] MEDS: Propranolol 60 MG Cap.ER PO SCH (09:19)
[2021-05-21] MEDS: amLODIPine 5 MG Tab PO SCH (09:19)
[2021-05-21] MEDS: Acetaminophen 325 MG Tab PO PRN ×2 (09:22→20:45)
--- NOTE | 2021-05-21 15:07 | PN ---
SUBJECTIVE: The patient was seen. The patient was resting comfortably. He says he feels good. He is having less abdominal pain than yesterday. Yesterday, he had 2/10 pain while lying still, but when he was tried to sit up, it went up to 5/10. The patient says the pain is almost gone when he is lying down, but does come back when he sits up. He is tolerating a diet. His only complaint is some knee pain which is chronic and unchanged. OBJECTIVE: VITAL SIGNS: Temperature is 97.1, pulse is 73, blood pressure is 113/65, and saturating 96% on room air. ABDOMEN: Soft, nontender, nondistended. LABORATORY DATA: Hemoglobin is 12.9 and then 12.5. ASSESSMENT AND PLAN: The patient is a pleasant, 71-year-old gentleman with a rectus sheath hematoma. He has been hemodynamically stable. He is feeling good. He showed no signs of neuropathy or compartment syndrome. His last 2 hemoglobins have been fairly stable. I did go over with the patient again that typically these are treated with conservative measurements. He has stopped his anticoagulation. We will continue to monitor. If his hemoglobin stays stable, he will be discharged soon. If hemoglobin drops or he become unstable, repeat CT scan. I again went over that first plan would be IR treatment with embolization; if that does not work, then surgical. The patient understands. Did discuss the patient with the hospital team. KAYLEY / JAROD /[id number] SANTIAGO
[2021-05-22 07:18] LABS: BLOOD UREA NITROGEN,BUN 25 mg/dL (7.0-18.0); CARBON DIOXIDE,CO2 29.4 mmol/L (21.0-32.0); CHLORIDE,CL 101 mmol/L (98-107); GLUCOSE RANDOM 104 mg/dL (74-106); POTASSIUM,K 4.4 mmol/L (3.5-5.1); SODIUM,NA 136 mmol/L (136-148)
[2021-05-22] MEDS: amLODIPine 5 MG Tab PO SCH (09:53)
[2021-05-22] MEDS: Propranolol 60 MG Cap.ER PO SCH (09:54)
[2021-05-22 11:50] VITALS: BP 129/78; PULSE 78
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
--- NOTE | 2021-05-22 12:40 | PN ---
SUBJECTIVE: The patient was seen this morning. He was resting comfortably. He says he is feeling much better. He has no abdominal pain when laying, and abdominal pain when he stands up. He is greatly improved. He has been tolerating diet, going to the bathroom without issues. OBJECTIVE: VITAL SIGNS: Pulse is 77, blood pressure is 126/73, and saturating 94% on room air. ABDOMEN: Soft, nontender, and nondistended. LABORATORY DATA: Hemoglobin is 12.7, yesterday was 12.5. ASSESSMENT AND PLAN: The patient is a pleasant 71-year-old gentleman with a rectus sheath hematoma. He has been hemodynamically stable. His hemoglobin has been stable. His abdominal pain has greatly improved and has almost resolved. I did go over with the patient that he will likely be discharged today. His slowly reabsorb the hematoma. He should come right back if he has any questions or concerns, has increased abdominal pain, or feeling lightheaded or dizzy. I did discuss patient with the hospital team. The patient may follow up with me on a p.r.n. basis. All the patient's questions were answered. KAYLEY OLIVERA /[id number]
== END 2021-05-22 13:05 | disposition home or self-care (01) ==
LOC: MW.ED 10:24 → MW.MS 18:21
PROVIDERS: ADMIT Internal Medicine; ATTEND Internal Medicine
DX: S30.1XXA Contusion of abdominal wall, initial encounter (principal); I10 Essential (primary) hypertension; I48.91 Unspecified atrial fibrillation; M10.9 Gout, unspecified; Z20.822 Contact with and (suspected) exposure to COVID-19; Z88.2 Allergy status to sulfonamides; Z79.899 Other long term (current) drug therapy; X58.XXXA Exposure to other specified factors, initial encounter
CPT/HCPCS: 36415; 74174; 74177; 76705; 80048; 80053; 81001; 83690; 85025; 85610; 86850; 86900; 86901; 99285; A9270; G0378; J7030; Q9967; U0002

== ENCOUNTER 2024-10-17 17:53 | Inpatient (IN) | payer MEDICARE ==
[2024-10-17 18:25] LABS: BASOPHILS ABSOLUTE AUTO 0.02 K/uL (0.00-0.20); BASOPHILS PERCENT AUTO 0.3 % (0.0-1.0); EOSINOPHILS ABSOLUTE AUTO 0.01 K/uL (0.00-0.45); EOSINOPHILS PERCENT AUTO 0.1 % (0.0-6.0); HEMATOCRIT 44.6 % (42.0-52.0); HEMOGLOBIN 13.8 g/dL (14.0-18.0); IMMATURE GRAN ABSOLUTE AUTO 0.02 K/uL (0.00-0.05); IMMATURE GRAN PERCENT AUTO 0.3 % (0.0-0.4); LYMPHOCYTES ABSOLUTE AUTO 0.94 K/uL (1.00-4.80); LYMPHOCYTES PERCENT AUTO 13.3 % (24.0-44.0); MEAN CORPUSCULAR HEMOGLOBIN 28.6 pg (28.0-32.0); MEAN CORPUSCULAR HGB CONC 30.9 g/dL (32.0-36.0); MEAN CORPUSCULAR VOLUME 92.5 fL (83.0-99.0); MONOCYTES ABSOLUTE AUTO 0.71 K/uL (0.00-0.80); MONOCYTES PERCENT AUTO 10.1 % (0.0-8.0); NEUTROPHILS ABSOLUTE AUTO 5.35 K/uL (1.80-7.70); NEUTROPHILS PERCENT AUTO 75.9 % (41.0-71.0); PLATELET COUNT,PLT 161 K/uL (150-400); RED BLOOD CELL COUNT 4.82 M/uL (4.52-5.90); WHITE BLOOD CELL COUNT,WBC 7.05 K/uL (3.9-11.3)
[2024-10-17] MEDS: methylPREDNISolone Sodium Succinate 125 MG/2 ML SDV IVPUSH ONE (19:09)
[2024-10-17 19:10] LABS: A/G RATIO 0.6 (0.9-1.6); ALANINE AMINOTRANSFERASE,ALT 29 IU/L (14-63); ALBUMIN 3.4 g/dL (3.4-5.0); ALKALINE PHOSPHATASE 118 U/L (46-116); ASPARTATE AMNIOTRANSFERASE,AST 39 IU/L (15-37); BILIRUBIN TOTAL 0.7 mg/dL (0.2-1.0); BLOOD UREA NITROGEN,BUN 26 mg/dL (7.0-18.0); CALCIUM 9.1 mg/dL (8.5-10.1); CARBON DIOXIDE,CO2 33.2 mmol/L (21.0-32.0); CHLORIDE,CL 97 mmol/L (98-107); CREATININE 1.1 mg/dL (0.8-1.3); GLUCOSE RANDOM 136 mg/dL (74-106); LIPASE 35 U/L (16-77); MAGNESIUM 1.8 mg/dL (1.8-2.4); POTASSIUM,K 4.4 mmol/L (3.5-5.1); PRO B-TYPE NATRIUR PEPT,BNPPRO 8717 pg/mL (0-450); PROTEIN TOTAL,TP 8.8 g/dL (6.4-8.2); SODIUM,NA 135 mmol/L (136-148)
[2024-10-17] MEDS: Albuterol/Ipratropium 3.0-0.5 MG/3 ML Neb Soln NEB ONE ×2 (19:10→20:06)
[2024-10-17 19:13] LABS: PH,VENOUS 7.24 (7.31-7.41)
[2024-10-17 19:17] LABS: ESTIMATED GFR 70 mL/min (>60)
[2024-10-17 19:30] LABS: LACTIC ACID 1.9 mmol/L (0.4-2.0)
[2024-10-17] MEDS: Oseltamivir 75 MG Cap PO ONE (19:45)
[2024-10-17] MEDS: Cefepime 2 GM in Sodium Chloride 0.9% 50 ML IV ONE (19:45)
[2024-10-17 22:41] LABS: BICARBONATE,ARTERIAL 32 mEq/L (22-26); PCO2 ARTERIAL 66 mmHG (35-45); PO2 ARTERIAL 78 mmHG (80-105)
[2024-10-17] MEDS: Azithromycin 500 MG in Sodium Chloride 0.9% 250 ML IV ONE (23:08)
[2024-10-18] MEDS: Azithromycin 500 MG in Sodium Chloride 0.9% 250 ML IV SCH (00:03)
[2024-10-18] MEDS: Pantoprazole 40 MG in Sodium Chloride 0.9% 10 ML IVPUSH SCH (00:04)
[2024-10-18] MEDS: Albuterol/Ipratropium 3.0-0.5 MG/3 ML Neb Soln NEB SCH (01:39)
[2024-10-18 02:37] LABS: APPEARANCE,URINE SLT CLOUDY; BILIRUBIN,URINE NEGATIVE (NEGATIVE); COLOR,URINE YELLOW; GLUCOSE,URINE NEGATIVE (NEGATIVE); KETONES,URINE NEGATIVE (NEGATIVE); LEUKOCYTE ESTERASE,URINE SMALL (NEGATIVE); NITRITE,URINE NEGATIVE (NEGATIVE); OCCULT BLOOD,URINE SMALL (NEGATIVE); PROTEIN,URINE 30 mg/dL (NEGATIVE); UROBILINOGEN,URINE 0.2 EU/dL (<2.0)
[2024-10-18 02:48] LABS: BACTERIA,URINE 1+ (NEGATIVE); EPITHELIAL CELLS,URINE FEW (NONE-FEW); FINE GRANULAR CASTS,URINE 0-1 (NEGATIVE); HYALINE CASTS,URINE 0-1 (0-2/LPF); RBC,URINE 0-3 (0-2/HPF)
[2024-10-18] MEDS: Cefepime 2 GM in Sodium Chloride 0.9% 50 ML IV SCH (03:52)
[2024-10-18 06:34] LABS: BASOPHILS ABSOLUTE AUTO 0.01 K/uL (0.00-0.20); BASOPHILS PERCENT AUTO 0.2 % (0.0-1.0); HEMATOCRIT 40.4 % (42.0-52.0); HEMOGLOBIN 12.5 g/dL (14.0-18.0); IMMATURE GRAN ABSOLUTE AUTO 0.01 K/uL (0.00-0.05); IMMATURE GRAN PERCENT AUTO 0.2 % (0.0-0.4); MEAN CORPUSCULAR HEMOGLOBIN 28.3 pg (28.0-32.0); MEAN CORPUSCULAR HGB CONC 30.9 g/dL (32.0-36.0); MEAN CORPUSCULAR VOLUME 91.6 fL (83.0-99.0); MEAN PLATELET VOLUME 10.4 fL (9.4-12.4); MONOCYTES ABSOLUTE AUTO 0.11 K/uL (0.00-0.80); MONOCYTES PERCENT AUTO 2.2 % (0.0-8.0); NEUTROPHILS ABSOLUTE AUTO 4.48 K/uL (1.80-7.70); NEUTROPHILS PERCENT AUTO 89.4 % (41.0-71.0); PLATELET COUNT,PLT 146 K/uL (150-400); RED BLOOD CELL COUNT 4.41 M/uL (4.52-5.90); WHITE BLOOD CELL COUNT,WBC 5.01 K/uL (3.9-11.3)
[2024-10-18 07:03] LABS: A/G RATIO 0.6 (0.9-1.6); ALBUMIN 2.7 g/dL (3.4-5.0); BILIRUBIN TOTAL 0.6 mg/dL (0.2-1.0); CALCIUM 8.8 mg/dL (8.5-10.1); CARBON DIOXIDE,CO2 32.9 mmol/L (21.0-32.0); CREATININE 0.9 mg/dL (0.8-1.3); EST CRCL DRUG DOSING (CG) 61.69 mL/min; POTASSIUM,K 4.8 mmol/L (3.5-5.1); PROTEIN TOTAL,TP 7.4 g/dL (6.4-8.2)
[2024-10-18] MEDS: methylPREDNISolone Sodium Succinate 40 MG/1 ML SDV IVPUSH SCH (08:30)
[2024-10-18] MEDS: Apixaban 5 MG Tab PO SCH (08:30)
[2024-10-18] MEDS: Oseltamivir 75 MG Cap PO SCH (08:30)
[2024-10-18 09:26] LABS: BICARBONATE,ARTERIAL 32 mEq/L (22-26); PCO2 ARTERIAL 56 mmHG (35-45); PO2 ARTERIAL 130 mmHG (80-105)
[2024-10-18] MEDS: Nystatin Topical Powder 15 GM Bottle TOP SCH (17:59)
[2024-10-19 05:49] LABS: BASOPHILS ABSOLUTE AUTO 0.01 K/uL (0.00-0.20); BASOPHILS PERCENT AUTO 0.2 % (0.0-1.0); HEMATOCRIT 38.8 % (42.0-52.0); IMMATURE GRAN ABSOLUTE AUTO 0.02 K/uL (0.00-0.05); IMMATURE GRAN PERCENT AUTO 0.3 % (0.0-0.4); LYMPHOCYTES ABSOLUTE AUTO 0.87 K/uL (1.00-4.80); LYMPHOCYTES PERCENT AUTO 13.8 % (24.0-44.0); MEAN CORPUSCULAR HEMOGLOBIN 28.4 pg (28.0-32.0); MEAN CORPUSCULAR HGB CONC 30.9 g/dL (32.0-36.0); MEAN CORPUSCULAR VOLUME 91.7 fL (83.0-99.0); MEAN PLATELET VOLUME 10.2 fL (9.4-12.4); MONOCYTES ABSOLUTE AUTO 0.67 K/uL (0.00-0.80); MONOCYTES PERCENT AUTO 10.7 % (0.0-8.0); NEUTROPHILS ABSOLUTE AUTO 4.72 K/uL (1.80-7.70); PLATELET COUNT,PLT 155 K/uL (150-400); RED BLOOD CELL COUNT 4.23 M/uL (4.52-5.90); WHITE BLOOD CELL COUNT,WBC 6.29 K/uL (3.9-11.3)
[2024-10-19 06:16] LABS: CALCIUM 8.8 mg/dL (8.5-10.1); CARBON DIOXIDE,CO2 31.3 mmol/L (21.0-32.0); CREATININE 0.9 mg/dL (0.8-1.3); EST CRCL DRUG DOSING (CG) 73.23 mL/min; MAGNESIUM 1.9 mg/dL (1.8-2.4); POTASSIUM,K 4.5 mmol/L (3.5-5.1)
[2024-10-19] MEDS: Propranolol 60 MG Cap.ER PO SCH (08:20)
[2024-10-19] MEDS: amLODIPine 5 MG Tab PO SCH (08:21)
[2024-10-19] MEDS: Allopurinol 100 MG Tab PO SCH (08:22)
[2024-10-20 09:38] LABS: PH,VENOUS 7.37 (7.31-7.41)
[2024-10-21 06:54] LABS: HEMATOCRIT 38.6 % (42.0-52.0); HEMOGLOBIN 12.4 g/dL (14.0-18.0); IMMATURE GRAN ABSOLUTE AUTO 0.04 K/uL (0.00-0.05); IMMATURE GRAN PERCENT AUTO 0.5 % (0.0-0.4); LYMPHOCYTES ABSOLUTE AUTO 0.68 K/uL (1.00-4.80); LYMPHOCYTES PERCENT AUTO 8.7 % (24.0-44.0); MEAN CORPUSCULAR HEMOGLOBIN 28.7 pg (28.0-32.0); MEAN CORPUSCULAR HGB CONC 32.1 g/dL (32.0-36.0); MEAN CORPUSCULAR VOLUME 89.4 fL (83.0-99.0); MEAN PLATELET VOLUME 10.1 fL (9.4-12.4); MONOCYTES PERCENT AUTO 10.2 % (0.0-8.0); NEUTROPHILS ABSOLUTE AUTO 6.29 K/uL (1.80-7.70); NEUTROPHILS PERCENT AUTO 80.6 % (41.0-71.0); PLATELET COUNT,PLT 185 K/uL (150-400); RED BLOOD CELL COUNT 4.32 M/uL (4.52-5.90); WHITE BLOOD CELL COUNT,WBC 7.81 K/uL (3.9-11.3)
[2024-10-21 07:15] LABS: CALCIUM 8.6 mg/dL (8.5-10.1); CARBON DIOXIDE,CO2 31.8 mmol/L (21.0-32.0); CREATININE 0.8 mg/dL (0.8-1.3); EST CRCL DRUG DOSING (CG) 82.38 mL/min; MAGNESIUM 1.7 mg/dL (1.8-2.4); POTASSIUM,K 4.1 mmol/L (3.5-5.1)
[2024-10-21 13:07] VITALS: BP 158/98; PULSE 82
== END 2024-10-21 13:00 | disposition home or self-care (01) | DRG 193 ==
LOC: MW.ED 17:53 → MW.MS 10-18 10:47
PROVIDERS: ADMIT Internal Medicine; ATTEND Internal Medicine
PROC: 4A133R1 Monitoring of Arterial Saturation, Peripheral, Percutaneous Approach (ICD-10-PCS; principal; 2024-10-17)
PROC: 5A09357 Assistance with Respiratory Ventilation, Less than 24 Consecutive Hours, Continuous Positive Airway Pressure (ICD-10-PCS; 2024-10-17)
PROC: 5A0935A Assistance with Respiratory Ventilation, Less than 24 Consecutive Hours, High Flow/Velocity Cannula (ICD-10-PCS; 2024-10-17)
DX: J96.90 Respiratory failure, unspecified, unspecified whether with hypoxia or hypercapnia (principal); J10.00 Influenza due to other identified influenza virus with unspecified type of pneumonia; I48.91 Unspecified atrial fibrillation; J96.01 Acute respiratory failure with hypoxia; J96.02 Acute respiratory failure with hypercapnia; Z75.8 Other problems related to medical facilities and other health care; I48.11 Longstanding persistent atrial fibrillation; Z68.43 Body mass index [BMI] 50.0-59.9, adult; I10 Essential (primary) hypertension; M10.9 Gout, unspecified; Z96.649 Presence of unspecified artificial hip joint; F15.90 Other stimulant use, unspecified, uncomplicated; E66.813 Obesity, class 3; Z88.2 Allergy status to sulfonamides; Z79.01 Long term (current) use of anticoagulants; Z79.899 Other long term (current) drug therapy; Z90.89 Acquired absence of other organs; Z90.49 Acquired absence of other specified parts of digestive tract; Z98.890 Other specified postprocedural states
CPT/HCPCS: 36415 ×2; 36600 ×2; 71045; 80053 ×2; 81001; 82803 ×3; 83605; 83690; 83735; 83880; 84484; 85025 ×2; 87040 ×2; 87086; 87428; 93005; 94640; A9270 ×3; J0456; J0692 ×2; J2470; J2919 ×2; J3490 ×2; J7050; 80048; 82947; 94667; 94668; J7620-GY

== ENCOUNTER 2024-10-24 08:00 | Emergency (ER) | payer MEDICARE ==
[2024-10-24 08:22] VITALS: BP 126/99; PULSE 93
[2024-10-24] MEDS ORDERED: Morphine 2 MG/ML SYRINGE IVPUSH PRN (08:36)
[2024-10-24] MEDS: Acetaminophen 500 MG Tab PO ONE (08:38)
[2024-10-24] MEDS: Ondansetron 4 MG/2 ML SDV IVPUSH ONE (08:58)
[2024-10-24] MEDS: Morphine 2 MG/ML SYRINGE IVPUSH ONE (08:58)
[2024-10-24 09:23] LABS: BASOPHILS ABSOLUTE AUTO 0.02 K/uL (0.00-0.20); BASOPHILS PERCENT AUTO 0.2 % (0.0-1.0); EOSINOPHILS ABSOLUTE AUTO 0.06 K/uL (0.00-0.45); EOSINOPHILS PERCENT AUTO 0.5 % (0.0-6.0); HEMATOCRIT 45.4 % (42.0-52.0); HEMOGLOBIN 14.4 g/dL (14.0-18.0); IMMATURE GRAN ABSOLUTE AUTO 0.14 K/uL (0.00-0.05); IMMATURE GRAN PERCENT AUTO 1.1 % (0.0-0.4); LYMPHOCYTES ABSOLUTE AUTO 0.56 K/uL (1.00-4.80); LYMPHOCYTES PERCENT AUTO 4.2 % (24.0-44.0); MEAN CORPUSCULAR HEMOGLOBIN 28.2 pg (28.0-32.0); MEAN CORPUSCULAR HGB CONC 31.7 g/dL (32.0-36.0); MEAN PLATELET VOLUME 9.8 fL (9.4-12.4); MONOCYTES PERCENT AUTO 4.5 % (0.0-8.0); NEUTROPHILS ABSOLUTE AUTO 11.93 K/uL (1.80-7.70); NEUTROPHILS PERCENT AUTO 89.5 % (41.0-71.0); PLATELET COUNT,PLT 266 K/uL (150-400); WHITE BLOOD CELL COUNT,WBC 13.31 K/uL (3.9-11.3)
[2024-10-24 09:51] LABS: INR 1.23 (0.86-1.11)
[2024-10-24 10:02] LABS: A/G RATIO 0.7 (0.9-1.6); ALBUMIN 3.1 g/dL (3.4-5.0); BILIRUBIN TOTAL 0.7 mg/dL (0.2-1.0); CALCIUM 8.5 mg/dL (8.5-10.1); CARBON DIOXIDE,CO2 31.1 mmol/L (21.0-32.0); CREATININE 0.9 mg/dL (0.8-1.3); EST CRCL DRUG DOSING (CG) 73.23 mL/min; POTASSIUM,K 4.5 mmol/L (3.5-5.1); PROTEIN TOTAL,TP 7.4 g/dL (6.4-8.2)
[2024-10-24] MEDS: fentaNYL 50 MCG/ML SDV IVPUSH ONE (10:24)
== END 2024-10-24 11:08 ==
LOC: MW.ED 08:00
DX: S72.452A Displaced supracondylar fracture without intracondylar extension of lower end of left femur, initial encounter for closed fracture (principal); M25.562 Pain in left knee; I48.91 Unspecified atrial fibrillation; I10 Essential (primary) hypertension; Z79.01 Long term (current) use of anticoagulants; Z96.642 Presence of left artificial hip joint; Z90.49 Acquired absence of other specified parts of digestive tract; Z79.899 Other long term (current) drug therapy; Z88.2 Allergy status to sulfonamides; W00.9XXA Unspecified fall due to ice and snow, initial encounter
CPT/HCPCS: 36415; 73501; 73560; 80053; 83880; 85025; 85610; 93005; 96374; 96375; 99285; J2270; J2405; J3010; A9270-GY

== ENCOUNTER 2025-04-10 21:49 | Emergency (ER) | payer MEDICARE ==
[2025-04-10 23:55] VITALS: PULSE 0
== END 2025-04-11 00:50 | disposition expired ==
LOC: MW.ED 21:49
DX: I46.9 Cardiac arrest, cause unspecified (principal); I10 Essential (primary) hypertension; Z88.2 Allergy status to sulfonamides; Z79.899 Other long term (current) drug therapy; Z90.49 Acquired absence of other specified parts of digestive tract
CPT/HCPCS: 31500; 92950; 99285; J0171; 99282